=== PATIENT | female | born 1995 | race Caucasian/White ===

== ENCOUNTER → 2016-07-10 | Outpatient (CLI) | payer BC ==
[2016-07-10 12:58] LABS: BASOPHILS # (AUTO) 0.05 10*3/UL; BASOPHILS % (AUTO) 0.6 % (0-1); EOSINOPHILS % (AUTO) 1.1 % (0-8); HEMATOCRIT 42.2 % (37.0-47.0); HEMOGLOBIN 13.7 g/dL (12.0-16.0); IMM GRAN % (AUTO) 0.2 % (0-5); IMM GRAN# (AUTO) 0.02 10*3/UL; LYMPHOCYTES % (AUTO) 19.3 % (10-50); MEAN CORPUSCULAR HEMOGLOBIN 28.5 PG (27-31); MEAN CORPUSCULAR HGB CONC 32.5 g/dL (33-37); MEAN PLATELET VOLUME 10.2 FL (7.4-12.2); MONOCYTES # (AUTO) 0.45 10*3/UL (0.3-0.8); MONOCYTES % (AUTO) 5.4 % (5-15); NEUTROPHILS # (AUTO) 6.06 10*3/UL; NEUTROPHILS % (AUTO) 73.4 % (50-80); RDW COEFFICIENT OF VARIATION 13.8 % (11.5-14.5); RED BLOOD COUNT 4.81 10^6/uL (4.20-5.40); WHITE BLOOD COUNT 8.27 10^3/uL (4.8-10.8)
[2016-07-10 13:04] LABS: PLATELET MORPHOLOGY COMMENT NORMAL MORPHOLOGY (NORM)
[2016-07-10 13:09] LABS: PROTHROMBIN TIME 11.4 secs (9.7-11.4)
[2016-07-10 13:19] LABS: ASPARTATE AMINO TRANSFERASE 26 IU/L (8-39); BLOOD UREA NITROGEN 13 mg/dL (7-22); BUN/CREATININE RATIO 16.25 (6-20); CALCIUM 10.3 mg/dL (8.7-10.7); CHLORIDE 104 meq/L (98-112); CREATININE 0.8 mg/dL (0.50-1.20); EST GLOMERULAR FILTRATION > 60 (>60 ml/min/1.73m(2)); GLUCOSE 75 mg/dL (78-110); POTASSIUM 4.9 meq/L (3.8-5.2); SODIUM 141 meq/L (135-145); TOTAL PROTEIN 7.5 g/dL (6.1-8.0)
[2016-07-11 15:50] LABS: PARASITIC EXAM FIN 1542 (())
== END ==
LOC: MOB LAB 11:25
PROVIDERS: ATTEND Physician Assistant
DX: K92.1 Melena (principal)
CPT/HCPCS: 36415; 80053; 83630; 83690; 85025; 85610; 85730; 87046; 87088; 87177; 87205; 87209; 87328; 87329; 87338; 87449; 87493

== ENCOUNTER 2016-08-09 07:34 | Day surgery (SDC) | payer BC ==
[~2016-08-09 07:34] MED LIST: LIDOCAINE 2% VISCOUS(20 MG/1 ML) - 15 ML UD CUP PO ONE; LIDOCAINE W/ SODIUM BICARB 0.5 ML SYR ONE; Lactated Ringers 1,000 ML PRIMARY IV ONE; fentaNYL Inj 100 MCG/2 ML VIAL ONE
--- NOTE | 2016-08-09 09:57 | GEN.OPNOTE ---
EGD / Colonoscopy Report Surgery Date: 08/09/16 Preoperative Diagnosis: Epigastric abdominal pain. Bright red blood per rectum. Positive lactoferrin. Postoperative Diagnosis: Same. Procedure: #1 esophagogastroduodenoscopy with biopsy. #2 complete colonoscopy with intubation of the terminal ileum and multiple random biopsies. Surgeon: Pascual Pena MD Anesthesia Provider: Michael Fuller CRNA Anesthesia Type: MAC Indications: See preoperative diagnosis. EGD Findings: Esophagus: [Normal] GE Junction : [Inflammation consistent with reflux] Fundus : [Normal] Body : [Normal] Prepyloric : [Mild erythema] Small Intestine : [Normal] A lubricated flexible upper endoscope was inserted and passed through the esophagus and stomach into the duodenum. The duodenum and duodenal bulb were unremarkable. The pyloric channel was widely patent. Other than some mild erythema in the antrum the entire stomach wall was unremarkable. Random biopsies were taken at the antrum. Hemostasis was assured. The scope was withdrawn into the distal esophagus. There were some inflammatory changes at the GE junction. Multiple biopsies were taken. Hemostasis was assured. The scope was withdrawn through the remaining normal-appearing esophagus and brought through the hypopharynx under suction completing that portion of the procedure. Colonoscopy Findings: Prep : [Excellent] Cecum : [Normal] Ascending : [Normal] Transverse : [Normal] Sigmoid : [Normal] Rectum : [Normal] Digital Rectal Exam : [Normal] Terminal ileum:[Visually normal] A lubricated flexible colonoscope was inserted and passed to the blind end of the cecum. The terminal ileum was intubated and appeared normal. Biopsies were taken. Hemostasis was assured. The scope was withdrawn into the cecum. Air was aspirated as the scope was withdrawn. The entire colonoscopy was normal without polyp, tumor, neoplastic mass, infectious or inflammatory process identified. Random biopsies were taken from the terminal ileum, right colon, transverse colon, sigmoid colon, and rectum. The scope was withdrawn completing the procedure. Patient tolerated all aspects of the procedure well without complication. She was taken to outpatient surgery in stable condition. Follow-up will be with my office on an as-needed basis. We will call the biopsy results and plan therapy and follow-up accordingly.
[2016-08-09 10:19] VITALS: RESP 14
[2016-08-09 10:21] VITALS: TEMP 98.4
== END 2016-08-09 10:20 | disposition home or self-care (01) ==
LOC: SDSC 07:34
PROVIDERS: ATTEND Surgery
DX: K62.5 Hemorrhage of anus and rectum (principal); R10.13 Epigastric pain
CPT/HCPCS: 43239; 45380; 84703; J2704; J3010; J7120